=== PATIENT | female | born 1980 | race Caucasian/White ===

== ENCOUNTER → 2017-02-05 | Outpatient (REF) | payer BC ==
[2017-02-05 16:41] LABS: BASOPHILS % (AUTO) 0 % (0-2); EOSINOPHILS % (AUTO) 0 % (0-4); LYMPHOCYTES # (AUTO) 1.6 X10^3; MEAN CORPUSCULAR VOLUME 88 FL (80-100); MEAN PLATELET VOLUME 12.5 FL (6.0-9.5); MONOCYTES # (AUTO) 0.8 X10^3; MONOCYTES % (AUTO) 5 % (3-11); NEUTROPHILS % (AUTO) 83 % (51-67); PLATELET COUNT 276 10^3uL (150-450); WHITE BLOOD COUNT 14.41 10^3uL (4.0-11.0)
[2017-02-05 16:50] LABS: ANION GAP 16.7 MEQ/L (3-15)
== END ==
LOC: LAB 16:18
PROVIDERS: ATTEND Family Medicine
DX: E87.6 Hypokalemia (principal); E86.0 Dehydration
CPT/HCPCS: 80048; 85025